=== PATIENT | male | born 1950 | race Caucasian/White ===

== ENCOUNTER 2018-04-12 18:06 | Emergency (ER) | payer MEDICARE, OTHER ==
[2018-04-12 18:15] VITALS: RESP 18
--- NOTE | 2018-04-12 18:46 | ED ---
Extremity Problem HPI - General Chief complaint: Extremity Problem,Nontraumatic Stated complaint: WOUND CHECK, BOTH LEGS Time Seen by Provider: 04/12/18 18:22 Source: patient, RN notes reviewed Mode of arrival: wheelchair Limitations: physical limitation - History of Present Illness Initial comments: 68-year-old male presents emergency Department from [facility] for evaluation of sores on his lower extremity. Patient states that he has noticed some white blistering areas over the last week or so. He states they have now opened up into larger sores have become black in nature. Patient states she has been treated over the last several weeks for diabetic foot ulcer on his left foot. Patient states that he is currently taking doxycycline 100 mg twice a day. Patient states that they told him he needs to be seen by vascular surgery secondary to his wounds. Patient states that he did have venous Doppler with the last week which is negative for acute DVT at [facility] emergency department. Patient reports no fever or chills. - Related Data Home Medications Medication Instructions Recorded Confirmed Allopurinol [Zyloprim] 300 mg PO DAILY 12/12/15 04/12/18 Amiodarone HCl [Pacerone] 200 mg PO DAILY 12/12/15 04/12/18 Ascorbic Acid [Vitamin C] 500 mg PO 1600 12/12/15 04/12/18 Aspirin [Adult Low Dose Aspirin EC] 81 mg PO DAILY 12/12/15 04/12/18 Calcitriol 0.25 mcg PO 1600 12/12/15 04/12/18 Carvedilol [Coreg] 12.5 mg PO DAILY 12/12/15 04/12/18 Cholecalciferol [Vitamin D3] 2,000 unit PO DAILY 12/12/15 04/12/18 FLUoxetine HCL [PROzac] 20 mg PO DAILY 12/12/15 04/12/18 Furosemide [Lasix] 40 mg PO BID 12/12/15 04/12/18 Insulin Glargine [Lantus] 80 unit SQ HS 12/12/15 04/12/18 Insulin Lispro [humaLOG] 22 units SQ 0700,1130,1630 12/12/15 04/12/18 Isosorbide Mononitrate ER [Imdur] 30 mg PO BID 12/12/15 04/12/18 Olmesartan [Benicar] 20 mg PO DAILY 12/12/15 04/12/18 [place]-3 Fatty Acids/Fish Oil [Fish 1 cap PO DAILY 12/12/15 04/12/18 Oil 1,000 mg Softgel] Polyethylene Glycol 3350 [Miralax] 17 gm PO DAILY 12/12/15 04/12/18 Warfarin [Coumadin] 5 mg PO SUMOTUWETHSA 12/12/15 04/12/18 Zinc Sulfate 220 mg PO 0800 12/12/15 04/12/18 Doxycycline [Vibramycin] 100 mg PO BID 04/12/18 04/12/18 Potassium Chloride [Klor-Con 20] 20 meq PO BID 04/12/18 04/12/18 Rosuvastatin Calcium [Crestor] 40 mg PO DAILY 04/12/18 04/12/18 Warfarin Sodium [Coumadin] 7.5 mg PO FR 04/12/18 04/12/18 Allergies Allergy/AdvReac Type Severity Reaction Status Date / Time bacitracin Allergy Unknown Verified 04/12/18 18:46 clindamycin Allergy Rash/Hives Verified 04/12/18 18:46 levofloxacin [From Levaquin] Allergy Unknown Verified 04/12/18 18:46 Penicillins Allergy Unknown Verified 04/12/18 18:46 sulfamethoxazole Allergy Unknown Verified 04/12/18 18:46 [From Bactrim] trimethoprim [From Bactrim] Allergy Unknown Verified 04/12/18 18:46 vancomycin Allergy Unknown Verified 04/12/18 18:46 Review of Systems ROS Statement: Those systems with pertinent positive or pertinent negative responses have been documented in the HPI. ROS Other: All systems not noted in ROS Statement are negative. Past Medical History Past Medical History: COPD, Diabetes Mellitus, Hyperlipidemia, Myocardial Infarction (NH), Renal Disease, Sleep Apnea/CPAP/BIPAP Additional Past Medical History / Comment(s): in wheelchair-no wt bearing on left heel due to ulcer, neuropathy, NH x 2, ,See Dr Tavares H &P, onychomycosis , rt heel spur, foot fissures, stage 3 kidney disease, pad pvd Last Myocardial Infarction Date:: 2007 History of Any Multi-Drug Resistant Organisms: None Reported Past Surgical History: AICD, Hernia Repair, Pacemaker Additional Past Surgical History / Comment(s): left testicle removed, myrtle foot surgery Past Anesthesia/Blood Transfusion Reactions: No Reported Reaction Type of Cardiac Device: AICD Device Placement Date:: 06/2008- [facility] Past Psychological History: Depression Smoking Status: Never smoker Past Alcohol Use History: Rare Past Drug Use History: None Reported - Past Family History Mother Family Medical History: No Reported History General Exam Limitations: no limitations, physical limitation General appearance: alert, in no apparent distress Head exam: Present: atraumatic, normocephalic, normal inspection Respiratory exam: Present: normal lung sounds bilaterally. Absent: respiratory distress, wheezes, rales, rhonchi, stridor Cardiovascular Exam: Present: regular rate, normal rhythm, normal heart sounds. Absent: systolic murmur, diastolic murmur, rubs, gallop, clicks Extremities exam: Present: other (Left lower extremity there is a 1 cm ulcer noted at the base of the fifth digit. There is minimal erythema. Pulses are palpable and current with Doppler in the room. Left lower extremity there are 2 large proximally 3 cm diameter ulcerated areas with central eschar) Skin exam: Present: warm, dry, normal color. Absent: rash Course Vital Signs 04/12/18 18:11 Temperature 97.6 F Pulse Rate 80 Respiratory 18 Rate Blood Pressure 117/63 O2 Sat by Pulse 95 Oximetry Medical Decision Making - Medical Decision Making 68-year-old male presented for lower leg wounds. Patient does have some peripheral vascular disease with noninfected Ulcerated areas. There is no evidence of cellulitis or infection at this time. Patient does have a diabetic foot ulcer which is currently under treatment and no evidence of a minus. Patient will follow-up outpatient with wound center and vascular surgeon and return for any worsening symptoms. - Lab Data Result diagrams: 04/12/18 19:05 04/12/18 19:05 Lab Results 04/12/18 04/12/18 04/12/18 Range/Units 19:05 19:05 19:05 WBC 7.7 (3.8-10.6) k/uL RBC 4.87 (4.30-5.90) m/uL Hgb 14.8 (13.0-17.5) gm/dL Hct 46.0 (39.0-53.0) % MCV 94.5 (80.0-100.0) fL MCH 30.4 (25.0-35.0) pg MCHC 32.2 (31.0-37.0) g/dL RDW 15.5 (11.5-15.5) % Plt Count 223 (150-450) k/uL Neutrophils % 74 % Lymphocytes % 16 % Monocytes % 5 % Eosinophils % 3 % Basophils % 1 % Neutrophils # 5.7 (1.3-7.7) k/uL Lymphocytes # 1.2 (1.0-4.8) k/uL Monocytes # 0.4 (0-1.0) k/uL Eosinophils # 0.2 (0-0.7) k/uL Basophils # 0.0 (0-0.2) k/uL PT (9.0-12.0) sec INR (<1.2) APTT (22.0-30.0) sec Sodium 135 L (137-145) mmol/L Potassium 5.1 (3.5-5.1) mmol/L Chloride 104 (98-107) mmol/L Carbon Dioxide 22 (22-30) mmol/L Anion Gap 9 mmol/L BUN 41 H (9-20) mg/dL Creatinine 2.02 H (0.66-1.25) mg/dL Est GFR (CKD-EPI)AfAm 39 (>60 ml/min/1.73 sqM) Est GFR (CKD-EPI)NonAf 33 (>60 ml/min/1.73 sqM) Glucose 185 H (74-99) mg/dL Plasma Lactic Acid Vinod 1.2 (0.7-2.0) mmol/L Calcium 9.2 (8.4-10.2) mg/dL Total Bilirubin 0.6 (0.2-1.3) mg/dL AST 42 (17-59) U/L ALT 58 (21-72) U/L Alkaline Phosphatase 132 H (38-126) U/L Total Protein 7.3 (6.3-8.2) g/dL Albumin 3.7 (3.5-5.0) g/dL 04/12/18 Range/Units 19:05 WBC (3.8-10.6) k/uL RBC (4.30-5.90) m/uL Hgb (13.0-17.5) gm/dL Hct (39.0-53.0) % MCV (80.0-100.0) fL MCH (25.0-35.0) pg MCHC (31.0-37.0) g/dL RDW (11.5-15.5) % Plt Count (150-450) k/uL Neutrophils % % Lymphocytes % % Monocytes % % Eosinophils % % Basophils % % Neutrophils # (1.3-7.7) k/uL Lymphocytes # (1.0-4.8) k/uL Monocytes # (0-1.0) k/uL Eosinophils # (0-0.7) k/uL Basophils # (0-0.2) k/uL PT 25.9 H (9.0-12.0) sec INR 2.9 H (<1.2) APTT 35.2 H (22.0-30.0) sec Sodium (137-145) mmol/L Potassium (3.5-5.1) mmol/L Chloride (98-107) mmol/L Carbon Dioxide (22-30) mmol/L Anion Gap mmol/L BUN (9-20) mg/dL Creatinine (0.66-1.25) mg/dL Est GFR (CKD-EPI)AfAm (>60 ml/min/1.73 sqM) Est GFR (CKD-EPI)NonAf (>60 ml/min/1.73 sqM) Glucose (74-99) mg/dL Plasma Lactic Acid Vinod (0.7-2.0) mmol/L Calcium (8.4-10.2) mg/dL Total Bilirubin (0.2-1.3) mg/dL AST (17-59) U/L ALT (21-72) U/L Alkaline Phosphatase (38-126) U/L Total Protein (6.3-8.2) g/dL Albumin (3.5-5.0) g/dL Disposition Clinical Impression: Diabetic foot ulcer, Peripheral vascular disease Disposition: HOME SELF-CARE Condition: Stable Instructions: Peripheral Vascular Disease (ED), Diabetic Foot Ulcers (ED) Additional Instructions: Please return to the Emergency Department if symptoms worsen or any other concerns. Is patient prescribed a controlled substance at d/c from ED?: No Referrals: Sagar Alonso MD [Primary Care Provider] - 1-2 days Yaron Covarrubias MD [STAFF PHYSICIAN] - 1-2 days Time of Disposition: 19:57
[2018-04-12 19:23] LABS: Basophils % (A) 1 %; Eosinophils # (A) 0.2 k/uL (0-0.7); Eosinophils % (A) 3 %; HGB 14.8 gm/dL (13.0-17.5); Lymphocytes # (A) 1.2 k/uL (1.0-4.8); Lymphocytes % (A) 16 %; MCH 30.4 pg (25.0-35.0); MCHC 32.2 g/dL (31.0-37.0); MCV 94.5 fL (80.0-100.0); Mean Platelet Volume 7.2; Monocytes # (A) 0.4 k/uL (0-1.0); Monocytes % (A) 5 %; Neutrophils # (A) 5.7 k/uL (1.3-7.7); Neutrophils % (A) 74 %; Platelet Count 223 k/uL (150-450); RBC 4.87 m/uL (4.30-5.90); RDW 15.5 % (11.5-15.5); WBC 7.7 k/uL (3.8-10.6)
[2018-04-12 19:28] LABS: INR 2.9 (<1.2); Partial Thromboplastin Time 35.2 sec (22.0-30.0); Prothrombin Time 25.9 sec (9.0-12.0)
[2018-04-12 19:34] LABS: Albumin 3.7 g/dL (3.5-5.0); Potassium 5.1 mmol/L (3.5-5.1); Total Protein 7.3 g/dL (6.3-8.2)
[2018-04-12 19:37] LABS: Calcium 9.2 mg/dL (8.4-10.2); Total Bilirubin 0.6 mg/dL (0.2-1.3)
--- NOTE | 2018-04-12 19:44 | XR ---
EXAMINATION TYPE: XR foot complete LT DATE OF EXAM: 04/12/2018 COMPARISON: NONE HISTORY: Nonhealing wounds TECHNIQUE: 3 views FINDINGS: There is hyperextension deformity at the MP joints. There is plantar calcaneal spurring. I see no fracture nor dislocation. IMPRESSION: Multiple hammertoe deformity. No fracture seen. Soft tissue swelling of the forefoot.
[2018-04-12 20:28] VITALS: BP 128/80; PULSE 70; TEMP 98.4
== END 2018-04-12 20:05 | disposition home or self-care (01) ==
LOC: EC 18:06
DX: E11.621 Type 2 diabetes mellitus with foot ulcer (principal); I73.9 Peripheral vascular disease, unspecified; E78.5 Hyperlipidemia, unspecified; I25.2 Old myocardial infarction; E11.22 Type 2 diabetes mellitus with diabetic chronic kidney disease; N18.3 Chronic kidney disease, stage 3 (moderate); E11.40 Type 2 diabetes mellitus with diabetic neuropathy, unspecified; G47.30 Sleep apnea, unspecified; F32.9 Major depressive disorder, single episode, unspecified; Z79.82 Long term (current) use of aspirin; Z79.4 Long term (current) use of insulin; Z79.01 Long term (current) use of anticoagulants; Z79.899 Other long term (current) drug therapy; Z88.0 Allergy status to penicillin; Z88.1 Allergy status to other antibiotic agents; Z88.2 Allergy status to sulfonamides; Z95.0 Presence of cardiac pacemaker
CPT/HCPCS: 36415; 80053; 83605; 85025; 85610; 85730; 87040; 99283